=== PATIENT | male | born 1980 | race Asian ===

== ENCOUNTER 2018-02-20 09:36 | Emergency (ER) | payer SELFPAY ==
[2018-02-20 09:47] VITALS: BP 119/78
--- NOTE | 2018-02-20 13:31 | UC ---
Kacy Campa Gabriel, scribed for Oksana Monroe DO on 02/20/18 at 1021 . FLU HPI - HPI Summary HPI Summary: This patient is a 37 year old M [place] [facility] [place] with a chief complaint of cold that began 4 days ago but is getting worse. The patient rates the pain 5/10 in severity. Patient reports a productive cough, general malaise and fatigue. Patient denies blood in mucus, SOB, sinus congestion, fever, chill, aches, diaphoresis, headache, nausea, and ABD pain. Pt had a sore throat that has resolved. 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 Pt states he took an unknown medication from [employer] to attempt to treat his symptoms and it mitigated some symptoms. 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 Negative: Fever, F/C, Myalgia, Nasal Congestion, Headache, Vomiting - Allergy/Home Medications Allergies/Adverse Reactions: Allergies Allergy/AdvReac Type Severity Reaction Status Date / Time No Known Allergies Allergy Verified 02/20/18 09:43 PMH/Surg Hx/FS Hx/Imm Hx Previously Healthy: Yes Other History Of: Negative For: Anticoagulant Therapy - Surgical History Surgical History: None - Family History Known Family History: Negative: Hypertension, Diabetes, Renal Disease, Respiratory Disease, Seizure Disorder - Social History Occupation: Employed Full-time Lives: With Family Alcohol Use: Rare Substance Use Type: None Smoking Status (MU): Never Smoked Tobacco Review of Systems Constitutional: Fatigue, Other - general malaise, Respiratory: Cough - productive cough All Other Systems Reviewed And Are Negative: Yes Physical Exam - Summary Physical Exam Summary: Appearance: Well-Appearing, No Pain Distress, Well-Nourished Eyes: conjunctiva clear, no discharge ENT: Hearing grossly normal, no muffled/hoarse voice. TMs normal, negative tonsillar swelling, negative tonsillar exudate, negative trismus. Neck: Normal, Supple Respiratory/Lung Sounds: Lungs clear, Normal breath sounds, No respiratory distress, No accessory muscle use Cardiovascular: RRR, No murmur Musculoskeletal: Normal Neurological: Alert, muscle tone normal Psychiatric:Normal, age appropriate behavior Skin: Normal, Warm, Dry, Normal color Triage Information Reviewed: Yes Vital Signs: Initial Vital Signs Temp 97.8 F 02/20/18 09:44 Pulse 76 02/20/18 09:44 Resp 16 02/20/18 09:44 BP 119/78 02/20/18 09:44 Pulse Ox 99 02/20/18 09:44 Vital Signs Reviewed: Yes Flu Course/Dx - Course Course Of Treatment: Patient will be discharged with prescription for Tessalon and mucinex and follow up from PCP. The patient is agreeable with this plan. Medications reviewed. - Differential Dx/Diagnosis Provider Diagnoses: URI, Acute cough Discharge - Sign-Out/Discharge Documenting (check all that apply): Discharge - Discharge Plan Condition: Stable Disposition: HOME Prescriptions: Benzonatate CAP* [Tessalon 100 MG CAP*] 100 mg PO TID #30 cap guaiFENesin ER TAB [Mucinex*] 600 mg PO BID PRN #1 box PRN Reason: Cough Patient Education Materials: Upper Respiratory Infection (ED), Acute Cough (ED) Forms: *Gen. Provider Communication, *Work Release Referrals: Jeromy Paz MD [Primary Care Provider] - - Billing Disposition and Condition Condition: STABLE Disposition: HOME The documentation as recorded by the Kacy perez Gabriel accurately reflects the service I personally performed and the decisions made by , Oksana Monroe DO.
== END 2018-02-20 10:45 | disposition home or self-care (01) ==
LOC: UCEAST 09:36
DX: J06.9 Acute upper respiratory infection, unspecified (principal); R05 Cough
CPT/HCPCS: 87651; 99212; G0463